=== PATIENT | male | born 1980 | race African-American/Black ===

== ENCOUNTER 2016-10-21 05:17 | Emergency (ER) | payer SELFPAY ==
[2016-10-21 05:27] VITALS: BP 128/104; PULSE 68; TEMP 98.1; BMI 29.7
--- NOTE | 2016-10-21 05:50 | PDOC ---
History of Present Illness - General History Source: Patient, EMS Exam Limitations: No Limitations - History of Present Illness Initial Comments: 10/21/16 06:04 The patient is a 36 year old male with significant past medical history of diabetes who presents to the ED BIBA for low blood sugar and AMS prior to arrival. Patient reports he had very little to eat last night and he took a little more insulin than usual. As per EMS, patients father contacted EMS. Upon arrival, EMS noted blood sugar was in the 30s, administered IM glucagon and IV D50, and subsequently patient responded. Patient presents with D10 infusing at present time. The patient denies fever, chills, cough, SOB, chest pain, and palpitations. The patient denies abdominal pain, nausea, vomiting, and diarrhea. Allergies: NKDA Social History: No alcohol, tobacco, or drug use reported. Past Surgical History: L elbow, rt. femur fx. metal adebayo PCP: None reported <Serenity Melendez - Last Filed: 10/21/16 06:04> - General History Source: Patient <Naldo Kuo - Last Filed: 10/21/16 06:50> - General Chief Complaint: Blood Sugar Problem Stated Complaint: BLOOD SUGAR PROBLEM Time Seen by Provider: 10/21/16 05:48 Past History <Serenity Melendez - Last Filed: 10/21/16 06:04> - Past Medical History Diabetes: Yes (type 1) Seizures: Yes (thinks he had a seizure when sugar dropped too low.) - Surgical History Orthopedic Surgery: Yes (L elbow, rt. femur fx. metal adebayo) - Immunization History Immunization Up to Date: Yes - Psycho/Social/Smoking Cessation Hx Anxiety: No Suicidal Ideation: No Smoking Status: No Smoking History: Never smoked Have you smoked in the past 12 months: No Number of Cigarettes Smoked Daily: 0 Cigars Per Day: 0 Information on smoking cessation initiated: No Hx Alcohol Use: No Drug/Substance Use Hx: No <Naldo Kuo - Last Filed: 10/21/16 06:50> - Past Medical History Allergies/Adverse Reactions: Allergies Allergy/AdvReac Type Severity Reaction Status Date / Time No Known Allergies Allergy Verified 10/21/16 05:23 Home Medications: Ambulatory Orders Atorvastatin Ca [Lipitor] 10 mg PO HS #0 tablet 02/07/14 Cardiac Stress Test 06/17/13 Enalapril Maleate [Vasotec -] 2.5 mg PO DAILY #0 tablet 06/17/13 Hemoglobin A 1 C 06/17/13 Insulin (Levemir) [Levemir Flexpen -] 10 units SQ HS #1 pen 06/17/13 Lipid Profile 06/17/13 Insulin (Novolog) [Novolog Flexpen -] 4 units SQ TID #1 pen 06/18/13 Review of Systems - Review of Systems Able to Perform ROS?: Yes Comments:: 10/21/16 06:04 CONSTITUTIONAL: Absent: fever, no chills, no fatigue EYES: Absent: visual changes ENT: Absent: ear pain, no sore throat CARDIOVASCULAR: Absent: chest pain, no palpitations RESPIRATORY: Absent: cough, no SOB GI: Absent: abdominal pain, no nausea, no vomiting, no constipation, no diarrhea GENITOURINARY: Absent: dysuria, no frequency, no hematuria MUSCULOSKELETAL: Absent: back pain, no arthralgia, no myalgia SKIN: Absent: rash ENDOCRINE: +low blood sugar Absent: unexplained weight gain, unexplained weight loss NEURO: +AMS Absent: headache <Serenity Melendez - Last Filed: 10/21/16 06:04> *Physical Exam - Vital Signs Last Vital Signs Temp Pulse Resp BP Pulse Ox 98.1 F 68 14 128/104 95 10/21/16 05:24 10/21/16 05:24 10/21/16 05:24 10/21/16 05:24 10/21/16 05:24 - Physical Exam Comments: 10/21/16 06:04 GENERAL: Well-appearing, well-nourished. No apparent distress. HEENT: Normocephalic, atraumatic. PERRL, EOM intact. CARDIOVASCULAR: Normal S1, S2. Regular rate and rhythm. PULMONARY: Clear to auscultation bilaterally. ABDOMEN: Soft, non-distended, non-tender. EXTREMITIES: Normal ROM in all four extremities. No gross deformities. SKIN: Warm, dry. No rash NEUROLOGICAL: Awake, alert, oriented. No focal neurological deficits. <Serenity Melendez - Last Filed: 10/21/16 06:04> - Vital Signs Last Vital Signs Temp Pulse Resp BP Pulse Ox 98.1 F 68 14 128/104 95 10/21/16 05:24 10/21/16 05:24 10/21/16 05:24 10/21/16 05:24 10/21/16 05:24 <Naldo Kuo - Last Filed: 10/21/16 06:50> ED Treatment Course - LABORATORY CBC & Chemistry Diagram: 10/21/16 05:54 10/21/16 05:54 <Serenity Melendez - Last Filed: 10/21/16 06:04> - LABORATORY CBC & Chemistry Diagram: 10/21/16 05:54 10/21/16 05:54 <Naldo Kuo - Last Filed: 10/21/16 06:50> Medical Decision Making - Medical Decision Making 10/21/16 06:46 Dr. Kuo: The scribe's documentation has been prepared under my direction and personally reviewed by me in its entirery. I confirm that the note above accurately reflects all work, treatment, procedures, and medical decision making performed by me. Accucheck 258. Pt hemodynamically stable. Will discharge. Pt advised to eat normally for 24 hours, then start his insulin. <Naldo Kuo - Last Filed: 10/21/16 06:50> *DC/Admit/Observation/Transfer - Attestations Scribe Attestion: 10/21/16 06:05 Documentation prepared by Serenity Melendez, acting as medical manager for Naldo Kuo MD/DO. <Serenity Melendez - Last Filed: 10/21/16 06:04> - Discharge Dispostion Admit: No <Naldo Kuo - Last Filed: 10/21/16 06:50> Diagnosis at time of Disposition: Hypoglycemia - Discharge Dispostion Disposition: HOME Condition at time of disposition: Stable - Referrals Referrals: Agustin Velasquez MD [Staff Physician] - Dunia Bearden MD [Staff Physician] - - Patient Instructions Printed Discharge Instructions: DI for Hypoglycemia Additional Instructions: Don't use your insulin for 24 hours. Then restart your insulin at lower doses if you are going to eat foods with lower glycemic indecies
[2016-10-21 06:04] LABS: BASOPHIL 0.7 % (0-2.0); EOSINOPHIL 1.7 % (0-4.5); MCH 30.5 pg (25.7-33.7); MCHC 32.8 g/dl (32.0-35.9); MEAN PLT VOLUME 9.6 fl (7.5-11.1); NEUTROPHILS 72.1 % (42.8-82.8); PLATELET COUNT 172 K/MM3 (134-434); RDW 12.9 % (11.9-15.9); WHITE BLOOD COUNT 7.3 K/mm3 (4.0-10.0)
[2016-10-21 06:16] LABS: INR 1.09 (0.82-1.09)
[2016-10-21 06:21] LABS: MAGNESIUM 2.1 mg/dL (1.8-2.4)
[2016-10-21 06:25] LABS: ALBUMIN 3.5 g/dl (3.4-5.0); ANION GAP 11 (8-16); BILIRUBIN,TOTAL 0.9 mg/dL (0.2-1.0); CALCIUM 8.6 mg/dL (8.5-10.1); CO2 24 mmol/L (21-32); COCKROFT - GAULT 145.99; GLUCOSE,RANDOM 189 mg/dL (74-106); SGOT/AST 26 U/L (15-37); SGPT/ALT 23 U/L (12-78); TOT PROT 6.7 g/dl (6.4-8.2)
[2016-10-21 06:28] LABS: ALK PHOS 85 U/L (45-117); TROPONIN I < 0.02 ng/ml (0.00-0.05)
== END 2016-10-21 07:13 | disposition home or self-care (01) ==
LOC: JER 05:17
DX: E10.649 Type 1 diabetes mellitus with hypoglycemia without coma (principal); Z79.4 Long term (current) use of insulin
CPT/HCPCS: 36415; 80053; 82550; 82553; 83690; 83735; 84484; 85025; 85610; 99282-25

== ENCOUNTER 2016-11-14 04:51 | Emergency (ER) | payer SELFPAY ==
[2016-11-14 04:58] VITALS: TEMP 98.6; BMI 24.4
--- NOTE | 2016-11-14 04:58 | PDOC ---
History of Present Illness - General Chief Complaint: Blood Sugar Problem Stated Complaint: HYPOGLYCEMIA Time Seen by Provider: 11/14/16 04:52 History Source: EMS - History of Present Illness Initial Comments: 11/14/16 05:03 36 year old found by family member unresponsive with 2 novolog bottle emptied around him with syringe. Patient was given D10W ems. initial blood sugar noted to be 22 BGM. patient seen in the ER for similar incident last week. Unsure of amount of insulin self administration and intentional overdose?, unsure of head injury. Patient has a past medical history of IDDM Past History - Past Medical History Allergies/Adverse Reactions: Allergies Allergy/AdvReac Type Severity Reaction Status Date / Time No Known Allergies Allergy Verified 11/14/16 04:53 Home Medications: Ambulatory Orders Hemoglobin A 1 C 06/17/13 Insulin Regular [NOVOLIN R VIAL *IVPUSH / ER / ICU Only*] 0 units SQ TID Diabetes: Yes (type 1) HTN: Yes Seizures: Yes (thinks he had a seizure when sugar dropped too low.) - Surgical History Orthopedic Surgery: Yes (L elbow, rt. femur fx. metal adebayo) - Immunization History Immunization Up to Date: Yes - Psycho/Social/Smoking Cessation Hx Anxiety: No Suicidal Ideation: No Smoking Status: No Smoking History: Never smoked Have you smoked in the past 12 months: No Number of Cigarettes Smoked Daily: 0 Cigars Per Day: 0 Hx Alcohol Use: No Drug/Substance Use Hx: No Review of Systems - Review of Systems Able to Perform ROS?: Yes Is the patient limited Beninese proficient: No Constitutional: Yes: Diaphoresis, Other (hypoglycemia) *Physical Exam - Vital Signs 11/14/16 05:07 Last Vital Signs Temp Pulse Resp BP Pulse Ox 98.6 F 75 19 160/76 99 11/14/16 04:53 11/14/16 04:53 11/14/16 04:53 11/14/16 04:53 11/14/16 04:53 - Physical Exam General Appearance: Yes: Appropriately Dressed Respiratory/Chest: positive: Lungs Clear, Normal Breath Sounds Cardiovascular: positive: Regular Rhythm, Regular Rate Gastrointestinal/Abdominal: positive: Normal Bowel Sounds, Soft Extremity: positive: Normal Capillary Refill Integumentary: positive: Normal Color, Dry, Warm Neurologic: positive: Responsive (to verbal stimuli,. not following commands at this time) Heart Score/ECG Review - ECG Intrepretation Rhythm: Regular Rhythm Comment:: 11/14/16 06:25 71 ED Treatment Course - LABORATORY CBC & Chemistry Diagram: 11/14/16 05:25 11/14/16 05:25 Progress Note - Progress Note Progress Note: A: hypoglycemia P : CBC CMP EKG cardiac enzymes CT head ua VBGph: 7. 31 D5w IVF Medical Decision Making - Medical Decision Making 11/14/16 05:54 patient alert ox3 now. reports that he has not taken insulin in 2-3 days. last night had big dinner. father at bedside reports empty insulin bottle is not concerning, reports that patient room is disheveled with multiple empt insulin vials. As per dad patient has been trialing fasting for many hours to control the hyperglycemia. patient denies suicidal ideation. 11/14/16 06:59 patient is hypoglycemic. BGM 64 D50Wx 1 to be given. 11/14/16 07:[address] Anand PY1/ *DC/Admit/Observation/Transfer Diagnosis at time of Disposition: Hypoglycemia
--- NOTE | 2016-11-14 05:09 | PDOC ---
*Physical Exam - Vital Signs Last Vital Signs Temp Pulse Resp BP Pulse Ox 98.6 F 75 19 160/76 99 11/14/16 04:53 11/14/16 04:53 11/14/16 04:53 11/14/16 04:53 11/14/16 04:53 ED Treatment Course - LABORATORY CBC & Chemistry Diagram: 11/14/16 05:25 11/14/16 05:25 Medical Decision Making - Medical Decision Making 11/14/16 05:09 agree with care from CARLOS Rojas. *DC/Admit/Observation/Transfer Diagnosis at time of Disposition: Hypoglycemia - Discharge Dispostion Disposition: AGAINST MEDICAL ADVICE Condition at time of disposition: Fair - Patient Instructions Printed Discharge Instructions: DI for Hypoglycemia Additional Instructions: Please return to the ED immediately if you experience worsening symptoms including increased fatigue, passing out, or weakness. Please follow up with your primary care provider or wind turbine installer to adjust your insulin regimen. Please remember to eat meals appropriately and avoid adjusting your insulin regimen without first consulting a doctor. - Post Discharge Activity Work/School Note: Back to Work
[2016-11-14] MEDS ORDERED: DEXTROSE 5%-WATER - 1,000 ML IV SCH (05:15)
[2016-11-14] MEDS ORDERED: ONDANSETRON 4 MG/2 ML VIAL IVPUSH ONE (05:31)
[2016-11-14] MEDS ORDERED: ONDANSETRON 4 MG/2 ML VIAL ONE (05:36)
[2016-11-14 05:39] LABS: BASOPHIL 0.5 % (0-2.0); EOSINOPHIL 1.3 % (0-4.5); MCH 30.7 pg (25.7-33.7); MEAN CELL VOLUME 93.1 fl (80-96); NEUTROPHILS 71.5 % (42.8-82.8); PLATELET COUNT 185 K/MM3 (134-434); RDW 13.1 % (11.9-15.9); WHITE BLOOD COUNT 6.9 K/mm3 (4.0-10.0)
[2016-11-14] MEDS ORDERED: DEXTROSE 5%-WATER - 1,000 ML IV ONE (05:48)
[2016-11-14 06:13] LABS: VENOUS BLOOD GAS HCO3 28.8 meq/L (19-25); VENOUS PH 7.31 (7.32-7.42)
[2016-11-14 06:21] LABS: ALBUMIN 3.8 g/dl (3.4-5.0); ANION GAP 10 (8-16); BILIRUBIN,TOTAL 1.3 mg/dL (0.2-1.0); CALCIUM 8.5 mg/dL (8.5-10.1); CO2 29 mmol/L (21-32); GLUCOSE,RANDOM 50 mg/dL (74-106); SGOT/AST 36 U/L (15-37); SGPT/ALT 37 U/L (12-78); TOT PROT 7.3 g/dl (6.4-8.2)
[2016-11-14 06:23] LABS: ALK PHOS 98 U/L (45-117); TROPONIN I < 0.02 ng/ml (0.00-0.05)
[2016-11-14] MEDS ORDERED: DEXTROSE 50%-WATER - 25 GM/50 ML VIAL IVPUSH ONE ×3 (06:47→09:27)
[2016-11-14] MEDS ORDERED: DEXTROSE 50%-WATER 50 ML DISP.SYRIN ONE ×2 (06:49→09:57)
--- NOTE | 2016-11-14 07:28 | PDOC ---
*Physical Exam - Vital Signs Last Vital Signs Temp Pulse Resp BP Pulse Ox 98.6 F 75 19 160/76 99 11/14/16 04:53 11/14/16 04:53 11/14/16 04:53 11/14/16 04:53 11/14/16 04:53 - Physical Exam General Appearance: Yes: Nourished. No: Apparent Distress HEENT: positive: Normal Voice Respiratory/Chest: positive: Lungs Clear, Normal Breath Sounds. negative: Rales , Rhonchi, Wheezing Cardiovascular: positive: Regular Rhythm, Regular Rate. negative: Murmur, Gallop/S3, Gallop/S4 Gastrointestinal/Abdominal: positive: Normal Bowel Sounds, Soft, Guarding, Rebound. negative: Tender Extremity: positive: Normal Capillary Refill Integumentary: positive: Normal Color, Dry, Warm Neurologic: positive: Fully Oriented, Alert, Normal Mood/Affect, Normal Response ED Treatment Course - LABORATORY CBC & Chemistry Diagram: 11/14/16 05:25 11/14/16 05:25 - ADDITIONAL ORDERS Additional order review: Laboratory Results 11/14/16 11/14/16 06:06 05:25 VBG pH 7.31 L POC VBG pCO2 59.2 H POC VBG pO2 22.4 L Mixed VBG HCO3 28.8 H Sodium 144 Potassium 3.5 Chloride 105 Carbon Dioxide 29 D Anion Gap 10 BUN 13 Creatinine 1.0 Creat Clearance w eGFR > 60 Random Glucose 50 L D Calcium 8.5 Total Bilirubin 1.3 H D AST 36 D ALT 37 D Alkaline Phosphatase 98 Creatine Kinase 555 H CK-MB (CK-2) < 1.000 Troponin I < 0.02 Total Protein 7.3 Albumin 3.8 11/14/16 05:25 RBC 4.32 MCV 93.1 MCHC 33.0 RDW 13.1 MPV 9.0 Neutrophils % 71.5 Lymphocytes % 18.1 Monocytes % 8.6 Eosinophils % 1.3 Basophils % 0.5 - Medications Given in the ED: ED Medications Discontinued Medications Generic Name Dose Route Start Last Admin Trade Name Freq PRN Reason Stop Dose Admin Dextrose 50 gm 11/14/16 06:47 11/14/16 06:54 D50w (Vial) - IVPUSH 11/14/16 06:48 50 gm NOW ONE Administration Ondansetron HCl 4 mg 11/14/16 05:31 11/14/16 05:44 Zofran Injection IVPUSH 11/14/16 05:32 4 mg ONCE ONE Administration Progress Note - Progress Note Progress Note: Received sign out. Patient is a 36 year old male with a history of insulin dependent diabetes who presents with hypoglycemia. Patient was reportedly attempting fasting to control his hyperglycemia without adjustment of his insulin and presented altered with a glucose of 50. Patient underwent CT head for evaluation of intracranial process. Medical Decision Making - Medical Decision Making 11/14/16 07:25 Current plan is to administer a D50w push and have the patient eat. We will follow up on his head CT scan read. We will recheck his glucose and if it has corrected and the patient's CT is read as normal, he will be safe to discharge home. 11/14/16 07:48 Repeat glucose is 70. We will feed him and recheck glucose. 11/14/16 09:02 Patient was refusing to eat. Had discussion with the patient as to the reasoning. He stated that he believes that his pancreas is now producing more insulin and he isn't eating carbohydrates and that is why he doesn't need as much insulin, but continues to give himself extra dosages. He feels that if he ate, his sugar would skyrocket. I discussed with the patient that he needed to eat to stabilize his sugars and that his blood sugar was unsafely low. He agreed to eat and have his sugar rechecked after. 11/14/16 09:28 Patient's rechecked blood glucose was 46. Patient insists that he wishes to leave AMA. We discussed the risks of leaving including , syncope, seizure and other sequele of hypoglycemia. Patient insists that he will eat when he leaves and that he wishes to go to work. We discussed that he should not operate any heavy machinery or drive with a blood glucose of 46. We discussed that it would be in his best interest to stay in the ED for blood sugar optimization and monitoring. He continued to insist that he wished to leave AMA. We asked to administer more D50 before he leaves and he was agreeable to that plan. We discussed that he needs to follow up with a doctor to adjust his insulin regimen and needs to eat properly to avoid hypoglycemia. 11/14/16 10:18 Patient pulled IV out himself before receiving D50. We gave him two juice boxes before he left AMA. *DC/Admit/Observation/Transfer Diagnosis at time of Disposition: Hypoglycemia - Discharge Dispostion Disposition: AGAINST MEDICAL ADVICE Condition at time of disposition: Fair - Patient Instructions Printed Discharge Instructions: DI for Hypoglycemia Additional Instructions: Please return to the ED immediately if you experience worsening symptoms including increased fatigue, passing out, or weakness. Please follow up with your primary care provider or early childhood education worker to adjust your insulin regimen. Please remember to eat meals appropriately and avoid adjusting your insulin regimen without first consulting a doctor. - Post Discharge Activity Work/School Note: Back to Work - Attestations Physician Attestion: 11/14/16 07:39 I, Dr. Britton Anand, attest that this document has been prepared under my direction and personally reviewed by me in its entirety. I further attest, that it accurately reflects all work, treatment, procedures and medical decision -making performed by me.
--- NOTE | 2016-11-14 08:58 | EKG ---
Test Reason : Blood Pressure : / mmHG Vent. Rate : 071 BPM Atrial Rate : 071 BPM P-R Int : 132 ms QRS Dur : 104 ms QT Int : 396 ms P-R-T Axes : 078 070 025 degrees QTc Int : 430 ms POOR DATA QUALITY, INTERPRETATION MAY BE ADVERSELY AFFECTED NORMAL SINUS RHYTHM NON-SPECIFIC INTRA-VENTRICULAR CONDUCTION DELAY Confirmed by LENIN LI MD ([id number]) on 11/14/2016 8:57:55 AM Referred By: Confirmed By:LENIN LI MD
[2016-11-14 10:19] VITALS: BP 134/76; PULSE 78
== END 2016-11-14 10:19 | disposition left against medical advice (07) ==
LOC: JER 04:51
PROC: 3E0337Z Introduction of Electrolytic and Water Balance Substance into Peripheral Vein, Percutaneous Approach (ICD-10-PCS; principal; 2016-11-14)
PROC: 3E0336Z Introduction of Nutritional Substance into Peripheral Vein, Percutaneous Approach (ICD-10-PCS; 2016-11-14)
PROC: 3E033GC Introduction of Other Therapeutic Substance into Peripheral Vein, Percutaneous Approach (ICD-10-PCS; 2016-11-14)
DX: E10.649 Type 1 diabetes mellitus with hypoglycemia without coma (principal); Z79.4 Long term (current) use of insulin
CPT/HCPCS: 36415; 70450-TC; 80053; 82550; 82553; 82803; 84484; 85025; 93005; 93010; 99284-25

== ENCOUNTER 2017-09-11 22:03 | Emergency (ER) | payer SELFPAY ==
[2017-09-11] MEDS ORDERED: DEXTROSE 50%-WATER - 25 GM/50 ML VIAL ONE (22:12)
[2017-09-11] MEDS ORDERED: DEXTROSE 50%-WATER 25 GM/50 ML DISP.SYRIN ONE (22:13)
[2017-09-11 22:21] VITALS: BP 156/102; PULSE 77; BMI 27.8
[2017-09-11] MEDS ORDERED: SODIUM CHLORIDE 1,000 ML IV STA (22:22)
--- NOTE | 2017-09-11 22:22 | PDOC ---
History of Present Illness - General Chief Complaint: Blood Sugar Problem Stated Complaint: HYPOGLYCEMIC Time Seen by Provider: 09/11/17 22:18 History Source: Patient Exam Limitations: No Limitations - History of Present Illness Initial Comments: 09/11/17 22:23 Best Contact: Pmhx: IDDM Pshx: N/A Allergies:NKDA 37-year-old male BIBA to the emergency department only respond to pain stimuli. Fingerstick shows glucose at 42. After administering 2 A of dextrose, she became alert and oriented 3. Patient states he forgot to eat today. Patient denies headache, dizziness, lightheadedness, facial pains, neck pain/back pains , chest pain, shortness of breath, abdominal pains, urinary symptoms, extremity numbness or tingling sensation. Patient states he feels fine. Patient states this has happened previously when he forgot. Past History - Past Medical History Allergies/Adverse Reactions: Allergies Allergy/AdvReac Type Severity Reaction Status Date / Time No Known Allergies Allergy Verified 09/11/17 22:17 Home Medications: Ambulatory Orders Insulin Regular [NOVOLIN R VIAL *IVPUSH / ER / ICU Only*] 0 units SQ TID Diabetes: Yes (type 1) HTN: Yes Seizures: Yes (thinks he had a seizure when sugar dropped too low.) - Surgical History Orthopedic Surgery: Yes (L elbow, rt. femur fx. metal adebayo) - Immunization History Immunization Up to Date: Yes - Suicide/Smoking/Psychosocial Hx Smoking Status: No Smoking History: Unknown if ever smoked Have you smoked in the past 12 months: No Number of Cigarettes Smoked Daily: 0 Cigars Per Day: 0 Information on smoking cessation initiated: No Hx Alcohol Use: No Drug/Substance Use Hx: No Substance Use Type: None Review of Systems - Review of Systems Able to Perform ROS?: Yes Comments:: 09/11/17 22:24 CONSTITUTIONAL: Absent: fever, chills, diaphoresis, generalized weakness, malaise, loss of appetite HEENT: Absent: rhinorrhea, nasal congestion, throat pain, throat swelling, difficulty swallowing, mouth swelling, ear pain, eye pain, visual Changes CARDIOVASCULAR: Absent: chest pain, loss of consciousness, palpitations, irregular heart rate, peripheral edema RESPIRATORY: Absent: cough, shortness of breath, dyspnea with exertion, orthopnea, wheezing, stridor, hemoptysis GASTROINTESTINAL: Absent: abdominal pain, abdominal distension, nausea, vomiting, diarrhea, constipation, melena, hematochezia GENITOURINARY: Absent: dysuria, frequency, urgency, hesitancy, hematuria, flank pain, genital pain MUSCULOSKELETAL: Absent: myalgia, arthralgia, joint swelling SKIN: Absent: rash, itching, pallor HEMATOLOGIC/IMMUNOLOGIC: Absent: easy bleeding, easy bruising, lymphadenopathy, frequent infections ENDOCRINE: Absent: unexplained weight gain, unexplained weight loss, heat intolerance, cold intolerance NEUROLOGIC: Absent: headache, focal weakness or paresthesias, dizziness, unsteady gait, seizure, mental status changes, bladder or bowel incontinence PSYCHIATRIC: Absent: anxiety, depression, suicidal or homicidal ideation, hallucinations. Is the patient limited Romansh proficient: No *Physical Exam - Vital Signs Last Vital Signs Temp Pulse Resp BP Pulse Ox 77 14 156/102 93 L 09/11/17 22:03 09/11/17 22:03 09/11/17 22:03 09/11/17 22:03 - Physical Exam Comments: 09/11/17 22:24 GENERAL: Well developed, well nourished. Awake and alert. No acute distress. HEENT: Normocephalic, atraumatic. PERRLA, EOMI. No conjunctival pallor. Sclera are non- icteric. Moist mucous membranes. Oropharynx is clear. NECK: Supple. Full ROM. No JVD. Carotid pulses 2+ and symmetric, without bruits. No thyromegaly. No lymphadenopathy. CARDIOVASCULAR: Regular rate and rhythm. No murmurs, rubs, or gallops. Distal pulses are 2+ and symmetric. PULMONARY: No evidence of respiratory distress. Lungs clear to auscultation bilaterally. No wheezing, rales or rhonchi. ABDOMINAL: Soft. Non-tender. Non-distended. No rebound or guarding. No organomegaly. Normoactive bowel sounds. MUSCULOSKELETAL Normal range of motion at all joints. No bony deformities or tenderness. No CVA tenderness. EXTREMITIES: No cyanosis. No clubbing. No edema. No calf tenderness. SKIN: Warm and dry. Normal capillary refill. No rashes. No jaundice. NEUROLOGICAL: Alert, awake, appropriate. Cranial nerves 2-12 intact. No deficits to light touch and temperature in face, upper extremities and lower extremities. No motor deficits in the in face, upper extremities and lower extremities. Normoreflexic in the upper and lower extremities. Normal speech. Toes are down- going bilaterally. Gait is normal without ataxia. PSYCHIATRIC: Cooperative. Good eye contact. Appropriate mood and affect. ED Treatment Course - LABORATORY CBC & Chemistry Diagram: 09/11/17 22:43 09/11/17 22:43 *DC/Admit/Observation/Transfer Diagnosis at time of Disposition: Hypoglycemia, Hypokalemia - Discharge Dispostion Condition at time of disposition: Stable Admit: No - Referrals - Patient Instructions Printed Discharge Instructions: DI for Hypoglycemia Additional Instructions: Do not forget to eat 3 meals a day with snacks in between Follow with your attendant self service store Return back to the emergency department for severe/persistent or worsening symptoms - Post Discharge Activity
[2017-09-11 22:53] LABS: BASO % 0.7 % (0-2.0); EOS % 0.9 % (0-4.5); HEMATOCRIT 39.9 % (35.4-49); HEMOGLOBIN 13.6 GM/dL (11.7-16.9); LYMPH % 20.5 % (8-40); MCH 31.9 pg (25.7-33.7); MCHC 34.2 g/dl (32.0-35.9); MEAN CELL VOLUME 93.3 fl (80-96); MEAN PLT VOLUME 9.1 fl (7.5-11.1); MONO % 9.8 % (3.8-10.2); NEUT % 68.1 % (42.8-82.8); PLATELET COUNT 184 K/MM3 (134-434); RBC 4.28 M/mm3 (4.00-5.60); RDW 13.1 % (11.9-15.9); WHITE BLOOD COUNT 6.8 K/mm3 (4.0-10.0)
[2017-09-11 23:25] LABS: ALBUMIN 3.8 g/dl (3.4-5.0); ANION GAP 10 (8-16); BILIRUBIN,TOTAL 0.7 mg/dL (0.2-1.0); BLOOD UREA NITROGEN 14 mg/dL (7-18); CALCIUM 8.5 mg/dL (8.5-10.1); CHLORIDE 106 mmol/L (98-107); CO2 28 mmol/L (21-32); CREATININE 1.1 mg/dL (0.7-1.3); GLUCOSE,RANDOM 184 mg/dL (74-106); POTASSIUM 3.2 mmol/L (3.5-5.1); SGOT/AST 34 U/L (15-37); SGPT/ALT 41 U/L (12-78); SODIUM 144 mmol/L (136-145)
[2017-09-11 23:26] LABS: ALK PHOS 96 U/L (45-117)
[2017-09-12] MEDS ORDERED: POTASSIUM CHLORIDE TABS 20 MEQ TABLET.ER (FP) PO ONE ×2 (00:44→02:17)
--- NOTE | 2017-09-16 13:59 | EKG ---
Test Reason : Blood Pressure : / mmHG Vent. Rate : 068 BPM Atrial Rate : 068 BPM P-R Int : 156 ms QRS Dur : 118 ms QT Int : 424 ms P-R-T Axes : 072 069 048 degrees QTc Int : 450 ms NORMAL SINUS RHYTHM INCOMPLETE RIGHT BUNDLE BRANCH BLOCK BORDERLINE ECG WHEN COMPARED WITH ECG OF 14-NOV-2016 05:41, NO SIGNIFICANT CHANGE WAS FOUND Confirmed by MAHESH PALENCIA MD ([id number]) on 09/16/2017 1:58:43 PM Referred By: Confirmed By:MAHESH PALENCIA MD
== END 2017-09-12 02:33 | disposition home or self-care (01) ==
LOC: JER 22:03
PROC: 3E0337Z Introduction of Electrolytic and Water Balance Substance into Peripheral Vein, Percutaneous Approach (ICD-10-PCS; principal; 2017-09-11)
DX: E10.649 Type 1 diabetes mellitus with hypoglycemia without coma (principal); Z79.4 Long term (current) use of insulin; E87.6 Hypokalemia; I10 Essential (primary) hypertension; G40.909 Epilepsy, unspecified, not intractable, without status epilepticus
CPT/HCPCS: 36415; 80053; 82962; 85025; 93005; 93010; 99281-25; J7030

== ENCOUNTER 2017-10-15 22:34 | Emergency (ER) | payer SELFPAY ==
--- NOTE | 2017-10-15 22:43 | PDOC ---
History of Present Illness - General Chief Complaint: Blood Sugar Problem Stated Complaint: Blood Sugar Problem Time Seen by Provider: 10/15/17 22:37 History Source: Patient - History of Present Illness Initial Comments: 10/15/17 22:56 37 year old BIBA patient was found slumped over a fence Blood sugar on the field 24. patient was give D10 on site. patient became alert ox3. Patient reports that now he is feeling better. patient took insulin prior to gettting on the train and had a small meal. patient reports that he was feeeling unwell when he got off the train onto the bus. patient reports feeling disoriented at this time. 911 was called by bystander who noticed that patient has slumped and disoriented. 10/15/17 23:11 Past History - Past Medical History Allergies/Adverse Reactions: Allergies Allergy/AdvReac Type Severity Reaction Status Date / Time No Known Allergies Allergy Verified 10/15/17 22:41 Home Medications: Ambulatory Orders Insulin Regular [NOVOLIN R VIAL *IVPUSH / ER / ICU Only*] 0 units SQ TID Diabetes: Yes (type 1) HTN: Yes Seizures: Yes (thinks he had a seizure when sugar dropped too low.) - Surgical History Orthopedic Surgery: Yes (L elbow, rt. femur fx. metal adebayo) - Immunization History Immunization Up to Date: Yes - Suicide/Smoking/Psychosocial Hx Smoking Status: No Smoking History: Unknown if ever smoked Have you smoked in the past 12 months: No Number of Cigarettes Smoked Daily: 0 Cigars Per Day: 0 Hx Alcohol Use: No Drug/Substance Use Hx: No Substance Use Type: None *Physical Exam - Vital Signs 10/15/17 23:04 Last Vital Signs Temp Pulse Resp BP Pulse Ox 98.4 F 66 17 156/78 98 10/15/17 22:38 10/15/17 22:38 10/15/17 22:38 10/15/17 22:38 10/15/17 22:38 Medical Decision Making - Medical Decision Making 10/15/17 23:04 patient is alert ox3. requesting to be released now. all risk factors reviewed. patient reports " that i am fine now." refusing further evaluation and labs. patient is of sound mind now and understands all risk factors of leaving prior to full evaluation is completely. patient advised to return to the ER if symptoms worsen. 10/15/17 23:05 AMA form 10/15/17 23:06 *DC/Admit/Observation/Transfer Diagnosis at time of Disposition: Hypoglycemia - Discharge Dispostion Disposition: AGAINST MEDICAL ADVICE Condition at time of disposition: Guarded - Referrals - Patient Instructions - Post Discharge Activity
[2017-10-15 22:52] VITALS: BP 156/78; PULSE 66; TEMP 98.4; BMI 32.3
[2017-10-15 23:22] LABS: URINE APPEARANCE CLEAR; URINE BILIRUBIN NEGATIVE (<2.0 mg/dL); URINE BLOOD NEGATIVE (NEGATIVE); URINE COLOR STRAW; URINE GLUCOSE (UA) NEGATIVE (NEGATIVE); URINE KETONE NEGATIVE (NEGATIVE); URINE LEUK ESTERASE NEGATIVE (NEGATIVE); URINE NITRITE NEGATIVE (NEGATIVE); URINE PROTEIN NEGATIVE (NEGATIVE); URINE UROBILINOGEN NEGATIVE mg/dL (0.2-1.0)
== END 2017-10-15 23:00 | disposition left against medical advice (07) ==
LOC: JER 22:34
DX: E10.649 Type 1 diabetes mellitus with hypoglycemia without coma (principal); Z79.4 Long term (current) use of insulin; I10 Essential (primary) hypertension; R56.9 Unspecified convulsions
CPT/HCPCS: 81003; 82962; 99283-25

== ENCOUNTER 2017-10-28 10:48 | Emergency (ER) | payer SELFPAY ==
[2017-10-28 10:58] VITALS: BP 155/80; PULSE 74; TEMP 98.4; BMI 32.1
[2017-10-28] MEDS ORDERED: SODIUM CHLORIDE 1,000 ML IV STA (11:38)
--- NOTE | 2017-10-28 12:06 | PDOC ---
History of Present Illness - General Chief Complaint: Blood Sugar Problem Stated Complaint: BLOOD SUGAR PROBLEM Time Seen by Provider: 10/28/17 11:33 History Source: Patient Exam Limitations: No Limitations - History of Present Illness Initial Comments: CHIEF COMPLAINT: 37 y/o afebrile male with PMH IDDM c/o feeling confused and disoriented this morning. HISTORY OF PRESENT ILLNESS: The patient states he woke up this morning and his sugar was low. He had an apple and left for work. He states he started feeling really confused and [place] going [place] and decided to get off and come to the hospital. He is here to get checked out. he was given orange juice and crackers in the waiting room and feels better. He denies fever, ALEGRIA, n/v/d, cough, fall, LOC, CP, SOB, abd pain, hematuria, dysuria. Vital signs on arrival are within normal limits. REVIEW OF SYSTEMS: GENERAL/CONSTITUTIONAL: No fever/chills. No weakness. No weight change. HEAD, EYES, EARS, NOSE AND THROAT: No change in vision. No ear pain or discharge. No sore throat. CARDIOVASCULAR: No chest pain or shortness of breath. RESPIRATORY: No cough, wheezing, or hemoptysis. GASTROINTESTINAL: No abd pain, nausea, vomiting, diarrhea. GENITOURINARY: No dysuria, frequency, or change in urination. MUSCULOSKELETAL: No joint or muscle swelling or pain. No neck or back pain. SKIN: No rash or easy bruising. NEUROLOGIC: +confusion and disorientation. No headache, vertigo, loss of consciousness, or loss of sensation. PHYSICAL EXAM: GENERAL: The patient is awake, alert, and fully oriented, in no acute distress. HEAD: Normal with no signs of trauma. ENT: Pupils equal, round and reactive to light, extraocular movements intact, sclera anicteric, conjunctiva clear. Neck supple. LUNGS: Clear to auscultation bilaterally. Normal excursion. No respiratory distress or use of accessory muscles. CV: RRR, S1/S2, no MRG. Cap refill < 2 sec. ABDOMEN: Soft, non-distended, non-tender even to deep palpation, no hepatomegaly or splenomegaly, no masses. EXTREMITIES: Normal range of motion, no edema. NEUROLOGICAL: Normal speech, normal gait. CN II-XII grossly intact. SKIN: Warm, dry, normal turgor, no rashes or lesions noted. Past History - Past Medical History Allergies/Adverse Reactions: Allergies Allergy/AdvReac Type Severity Reaction Status Date / Time No Known Allergies Allergy Verified 10/28/17 10:50 Home Medications: Ambulatory Orders Insulin Regular [NOVOLIN R VIAL *IVPUSH / ER / ICU Only*] 0 units SQ TID Anemia: No COPD: No Diabetes: Yes (type 1) HTN: Yes Seizures: Yes (thinks he had a seizure when sugar dropped too low.) - Surgical History Abdominal Surgery: No Appendectomy: No Orthopedic Surgery: Yes (L elbow, rt. femur fx. metal adebayo) - Immunization History Immunization Up to Date: Yes - Suicide/Smoking/Psychosocial Hx Smoking Status: No Smoking History: Never smoked Have you smoked in the past 12 months: No Number of Cigarettes Smoked Daily: 0 Cigars Per Day: 0 Information on smoking cessation initiated: No Hx Alcohol Use: No Drug/Substance Use Hx: No Substance Use Type: None *Physical Exam - Vital Signs Last Vital Signs Temp Pulse Resp BP Pulse Ox 98.4 F 74 18 155/80 100 10/28/17 10:52 10/28/17 10:52 10/28/17 10:52 10/28/17 10:52 10/28/17 10:52 ED Treatment Course - LABORATORY CBC & Chemistry Diagram: 10/28/17 12:35 10/28/17 12:35 Medical Decision Making - Medical Decision Making A/P: 37 y/o male with possible hypoglycemic episode. Plan is as follows: 1. labs 2. IV fluids patient states he feels better. Blood work unremarkable. Acetone negative. Patient given results. Will discharge to home. Instructed him to f/u with his doctor and return to the ER with any worsening or concerning symptoms. The patient verbalizes understanding of all instructions, has no further questions and is awaiting discharge. *DC/Admit/Observation/Transfer Diagnosis at time of Disposition: Hypoglycemia, Disorientated - Discharge Dispostion Disposition: HOME Condition at time of disposition: Improved - Referrals - Patient Instructions Printed Discharge Instructions: DI for Hypoglycemia Additional Instructions: Discharge Instructions: -Your lab work was unremarkable -Continue taking your Insulin as required/prescribed -Follow up with your doctor within 1 week -Return to the ER with any worsening or concerning symptoms - Post Discharge Activity Forms/Work/School Notes: Back to Work
[2017-10-28 12:58] LABS: BASO % 0.7 % (0-2.0); EOS % 0.8 % (0-4.5); HEMATOCRIT 42.3 % (35.4-49); HEMOGLOBIN 14.1 GM/dL (11.7-16.9); LYMPH % 25.5 % (8-40); MCH 30.9 pg (25.7-33.7); MCHC 33.3 g/dl (32.0-35.9); MEAN CELL VOLUME 92.9 fl (80-96); MONO % 6.7 % (3.8-10.2); NEUT % 66.3 % (42.8-82.8); RBC 4.55 M/mm3 (4.00-5.60); WHITE BLOOD COUNT 6.1 K/mm3 (4.0-10.0)
[2017-10-28 13:05] LABS: ALBUMIN 3.9 g/dl (3.4-5.0); ALK PHOS 99 U/L (45-117); ANION GAP 8 (8-16); BILIRUBIN,TOTAL 1.1 mg/dL (0.2-1.0); BLOOD UREA NITROGEN 10 mg/dL (7-18); CALCIUM 8.7 mg/dL (8.5-10.1); CHLORIDE 104 mmol/L (98-107); CO2 30 mmol/L (21-32); CREATININE 1.1 mg/dL (0.7-1.3); GLUCOSE,RANDOM 167 mg/dL (74-106); POTASSIUM 3.5 mmol/L (3.5-5.1); SGOT/AST 24 U/L (15-37); SGPT/ALT 31 U/L (12-78); SODIUM 142 mmol/L (136-145); TOT PROT 7.3 g/dl (6.4-8.2)
[2017-10-28 13:25] LABS: ACETONE SERUM NEGATIVE (NEGATIVE)
[2017-10-28 13:28] LABS: URINE APPEARANCE CLEAR; URINE BILIRUBIN NEGATIVE (<2.0 mg/dL); URINE COLOR YELLOW; URINE GLUCOSE (UA) 3+ (NEGATIVE); URINE KETONE NEGATIVE (NEGATIVE); URINE LEUK ESTERASE NEGATIVE (NEGATIVE); URINE NITRITE NEGATIVE (NEGATIVE); URINE PROTEIN NEGATIVE (NEGATIVE); URINE UROBILINOGEN NEGATIVE mg/dL (0.2-1.0)
[2017-10-28 13:29] LABS: PLATELET COUNT 142 K/MM3 (134-434)
[2017-10-28 13:30] LABS: MEAN PLT VOLUME 9.8 fl (7.5-11.1)
== END 2017-10-28 13:51 | disposition home or self-care (01) ==
LOC: JER 10:48
PROC: 3E0337Z Introduction of Electrolytic and Water Balance Substance into Peripheral Vein, Percutaneous Approach (ICD-10-PCS; principal; 2017-10-28)
DX: E16.2 Hypoglycemia, unspecified (principal); R41.0 Disorientation, unspecified
CPT/HCPCS: 36415; 80053; 81003; 82009; 82962; 85025; 99282-25; J7030

== ENCOUNTER 2017-12-16 23:44 | Emergency (ER) | payer SELFPAY ==
[2017-12-17 00:20] VITALS: BP 136/83; PULSE 79; TEMP 98.3; BMI 27.3
--- NOTE | 2017-12-17 00:38 | PDOC ---
History of Present Illness - General History Source: Patient <Naldo Kuo - Last Filed: 12/17/17 00:38> - General History Source: Patient Exam Limitations: No Limitations - History of Present Illness Initial Comments: 12/17/17 00:43 The patient is a 37 year old male, with a significant past medical history of diabetes, who presents to the emergency department via EMS with, hypoglycemia. As per patient, his blood sugar low. As per EMS, he was given glucagon within the field. While in the ED, the patient reports to feel asymptomatic and would like to sign out AMA. He denies any recent fevers, chills, headache or dizziness. He denies any recent nausea, vomit, diarrhea or constipation. He denies any recent chest pain or shortness of breath. He denies any recent dysuria, frequency, urgency or hematuria. Allergies: NKDA Social History: No alcohol, tobacco, or drug use reported. Past Surgical History: L elbow, rt. femur fx. metal adebayo <Barbie Kaufman - Last Filed: 12/17/17 00:44> - General Chief Complaint: Blood Sugar Problem Stated Complaint: DIABETIC EMERGENCY Time Seen by Provider: 12/17/17 00:37 Past History - Past Medical History Anemia: No COPD: No Diabetes: Yes (type 1) HTN: Yes Seizures: Yes (thinks he had a seizure when sugar dropped too low.) - Surgical History Abdominal Surgery: No Appendectomy: No Orthopedic Surgery: Yes (L elbow, rt. femur fx. metal adebayo) - Immunization History Immunization Up to Date: Yes - Suicide/Smoking/Psychosocial Hx Smoking Status: No Smoking History: Never smoked Have you smoked in the past 12 months: No Number of Cigarettes Smoked Daily: 0 Cigars Per Day: 0 Information on smoking cessation initiated: No Hx Alcohol Use: No Drug/Substance Use Hx: No Substance Use Type: None <Naldo Kuo - Last Filed: 12/17/17 00:38> <Barbie Kaufman - Last Filed: 12/17/17 00:44> - Past Medical History Allergies/Adverse Reactions: Allergies Allergy/AdvReac Type Severity Reaction Status Date / Time No Known Allergies Allergy Verified 12/17/17 00:17 Home Medications: Ambulatory Orders Insulin Regular [NOVOLIN R VIAL *IVPUSH / ER / ICU Only*] 0 units SQ TID Review of Systems - Review of Systems Able to Perform ROS?: Yes Comments:: 12/17/17 00:43 CONSTITUTIONAL: Present: Hypoglycemia. Absent: fever, no chills, no fatigue EYES: Absent: visual changes ENT: Absent: ear pain, no sore throat CARDIOVASCULAR: Absent: chest pain, no palpitations RESPIRATORY: Absent: cough, no SOB GI: Absent: abdominal pain, no nausea, no vomiting, no constipation, no diarrhea GENITOURINARY: Absent: dysuria, no frequency, no hematuria MUSKULOSKELETAL: Absent: back pain, no arthralgia, no myalgia SKIN: Absent: rash NEURO: Absent: headache All Other Systems: Reviewed and Negative <Barbie Kaufman - Last Filed: 12/17/17 00:44> *Physical Exam - Vital Signs Last Vital Signs Temp Pulse Resp BP Pulse Ox 98.3 F 79 20 136/83 96 12/16/17 23:46 12/16/17 23:46 12/16/17 23:46 12/16/17 23:46 12/16/17 23:46 <Naldo Kuo - Last Filed: 12/17/17 00:38> - Vital Signs Last Vital Signs Temp Pulse Resp BP Pulse Ox 98.3 F 79 20 136/83 96 12/16/17 23:46 12/16/17 23:46 12/16/17 23:46 12/16/17 23:46 12/16/17 23:46 - Physical Exam Comments: 12/17/17 00:44 GENERAL: Well-appearing, well-nourished. No apparent distress. HEENT: Normocephalic, atraumatic. PERRL, EOM intact. CARDIOVASCULAR: Normal S1, S2. Regular rate and rhythm. PULMONARY: Clear to auscultation bilaterally. ABDOMEN: Soft, non-distended, non-tender. EXTREMITIES: Normal ROM in all four extremities. No gross deformities. SKIN: Warm, dry. No rash NEUROLOGICAL: No focal neurological deficits. <Barbie Kaufman - Last Filed: 12/17/17 00:44> Medical Decision Making - Medical Decision Making 12/17/17 00:41 Dr. Kuo: The scribe's documentation has been prepared under my direction and personally reviewed by me in its entirery. I confirm that the note above accurately reflects all work, treatment, procedures, and medical decision making performed by me. blood glucose Is 163. Patient signed AGAINST MEDICAL ADVICE. Patient takes RESPONSIBILITY OF HIS CONDITION. <Naldo Kuo - Last Filed: 12/17/17 00:38> *DC/Admit/Observation/Transfer - Discharge Dispostion Decision to Admit order: No <Naldo Kuo - Last Filed: 12/17/17 00:38> - Attestations Scribe Attestion: 12/17/17 00:44 Documentation prepared by Barbie Kaufman, acting as medical radiation dosimetrist for Naldo Kuo DO. <Barbie Kaufman - Last Filed: 12/17/17 00:44> Diagnosis at time of Disposition: Hypoglycemia, Left against medical advice - Discharge Dispostion Disposition: AGAINST MEDICAL ADVICE Condition at time of disposition: Stable - Patient Instructions Printed Discharge Instructions: DI for Hyperglycemia -- Adult Additional Instructions: by signing against medical advise, you take on the responsibility of your condition.
== END 2017-12-17 00:43 | disposition left against medical advice (07) ==
LOC: JER 23:44
DX: E16.2 Hypoglycemia, unspecified (principal)
CPT/HCPCS: 82962; 99282-25

== ENCOUNTER 2017-12-18 05:28 | Emergency (ER) | payer SELFPAY ==
[2017-12-18 05:36] VITALS: BP 144/84; PULSE 72; TEMP 99.3; BMI 31.9
--- NOTE | 2017-12-18 05:51 | PDOC ---
Attending Attestation - Resident Resident Name: Kane So - ED Attending Attestation I have performed the following: I have examined & evaluated the patient, The case was reviewed & discussed with the resident, I agree w/resident's findings & plan, Exceptions are as noted - HPI HPI: 12/18/17 05:50 Hypoglycemia. was here yesterday for same - Physicial Exam PE: 12/18/17 05:49 Physical Exam General Appearance: Yes: Appropriately Dressed. No: Apparent Distress, Intoxicated HEENT: positive: EOMI, AMOR, Normal ENT Inspection, Normal Voice, TMs Normal, Pharynx Normal. negative: Pale Conjunctivae, Photophobia, Scleral Icterus (R), Scleral Icterus (L) Neck: positive: Trachea midline, Normal Thyroid, Supple. negative: Tender, Rigid, Carotid bruit, Stridor, Lymphadenopathy (R), Lymphadenopathy (L), Thyromegaly Respiratory/Chest: positive: Lungs Clear, Normal Breath Sounds. negative: Chest Tender, Respiratory Distress, Accessory Muscle Use, Labored Respiration, RES, Crackles, Rales, Rhonchi, Stridor, Wheezing, Dullness Cardiovascular: positive: Regular Rhythm, Regular Rate, S1, S2. negative: Edema , JVD, Murmur, Bradycardia, Tachycardia Vascular Pulses: Dorsalis-Pedis (R): 2+, Doralis-Pedis (L): 2+ Gastrointestinal/Abdominal: positive: Normal Bowel Sounds, Flat, Soft. negative : Tender, Organomegaly, Pulsatile Mass, Increased Bowel Sounds, Decreased BS, Distended, Guarding, Rebound, Hernia, Hepatomegaly, Spleenomegaly Lymphatic: negative: Adenopathy, Tenderness Musculoskeletal: positive: Normal Inspection. negative: CVA Tenderness, Decreased Range of Motion Extremity: positive: Normal Capillary Refill, Normal Inspection, Normal Range of Motion, Pelvis Stable. negative: Tender, Pedal Edema, Swelling, Erythema Integumentary: positive: Normal Color, Dry, Warm. negative: Cyanotic, Erythema , Jaundice, Rash Neurologic: positive: account resolution specialist II-XII NML intact, Fully Oriented, Alert, Normal Mood/ Affect, Motor Strength 5/5. negative: EOM Palsy, Facial Droop, Sensory Deficit - Medical Decision Making 12/18/17 05:51 Pt signed AMA and is willing to take risk of his condition <Naldo Kuo - Last Filed: 12/18/17 05:49> - HPI HPI: 12/18/17 06:44 The patient is a 37 year old female with a significant PMH of diabetes, hypertension, and seizures who presents to the emergency department via EMS s/p 2 seizure episodes secondary to hypoglycemia. The patient is a frequent patient to the ED with the same presentation. He was brought into the ED 1 day ago with this same complaint. The patient is known to purchase his insulin over the counter at [email or web address]. He denies any injury or complaints. Patient requests to leave after being brought in by EMS. He denies any other symptoms. Documentation prepared by Milton Blood, acting as emergency medical technician for Naldo Kuo DO. <Milton Blood - Last Filed: 12/18/17 06:44>
--- NOTE | 2017-12-18 05:51 | PDOC ---
History of Present Illness - General Chief Complaint: Blood Sugar Problem Stated Complaint: SEIZURES Time Seen by Provider: 12/18/17 05:31 History Source: Patient, EMS - History of Present Illness Initial Comments: 12/18/17 05:51 37m presents to the ED bibems after 2 seizures due to hypoglycemia. EMs called by father. Sugar was in the 40's by ems, was given glucagon, now in the 140's x2 Patient has repeated visits to our ED with this presentations. Buys his own insulin from [employer]. Asking to leave. Past History - Past Medical History Allergies/Adverse Reactions: Allergies Allergy/AdvReac Type Severity Reaction Status Date / Time No Known Allergies Allergy Verified 12/17/17 00:17 Home Medications: Ambulatory Orders Insulin Regular [NOVOLIN R VIAL *IVPUSH / ER / ICU Only*] 0 units SQ TID Anemia: No COPD: No Diabetes: Yes (type 1) HTN: Yes Seizures: Yes (thinks he had a seizure when sugar dropped too low.) - Surgical History Abdominal Surgery: No Appendectomy: No Orthopedic Surgery: Yes (L elbow, rt. femur fx. metal adebayo) - Immunization History Immunization Up to Date: Yes - Suicide/Smoking/Psychosocial Hx Smoking Status: No Smoking History: Never smoked Have you smoked in the past 12 months: No Number of Cigarettes Smoked Daily: 0 Cigars Per Day: 0 Hx Alcohol Use: No Drug/Substance Use Hx: No Substance Use Type: None Review of Systems - Review of Systems Able to Perform ROS?: No (left AMA) *Physical Exam - Vital Signs Last Vital Signs Temp Pulse Resp BP Pulse Ox 99.3 F 72 16 144/84 98 12/18/17 05:28 12/18/17 05:28 12/18/17 05:28 12/18/17 05:28 12/18/17 05:28 - Physical Exam General Appearance: Yes: Nourished, Appropriately Dressed, Apparent Distress Respiratory/Chest: positive: Normal Breath Sounds. negative: Chest Tender, Lungs Clear, Respiratory Distress Cardiovascular: positive: Regular Rhythm, Regular Rate, S1, S2 Medical Decision Making - Medical Decision Making 12/18/17 05:57 [place] AMA "has to open shop *DC/Admit/Observation/Transfer Diagnosis at time of Disposition: Seizure, Hypoglycemia - Discharge Dispostion Disposition: AGAINST MEDICAL ADVICE Condition at time of disposition: Unchanged/Unknown - Referrals Referrals: Alexi Chiang MD [Staff Physician] - - Patient Instructions Printed Discharge Instructions: Type 1 Diabetes - Post Discharge Activity
== END 2017-12-18 06:02 | disposition left against medical advice (07) ==
LOC: JER 05:28
DX: G40.509 Epileptic seizures related to external causes, not intractable, without status epilepticus (principal); E11.649 Type 2 diabetes mellitus with hypoglycemia without coma; Z79.4 Long term (current) use of insulin; I10 Essential (primary) hypertension
CPT/HCPCS: 99281-25